=== PATIENT | male | born 1980 | race Caucasian/White ===

== ENCOUNTER 2025-03-19 17:11 | Emergency (ER) | payer MEDICAID ==
[~2025-03-19] VITALS: Ht 180.3 cm; Wt 77.0 kg
[2025-03-19 17:17] VITALS: TEMP 96.7; O2SAT 95
[2025-03-19] MEDS ORDERED: CEPH500C2 MT (17:28)
[2025-03-19] MEDS ORDERED: SULF1TAB48 MT (17:28)
[2025-03-19] MEDS ORDERED: MUPI1OIN4 TP (17:29)
[2025-03-19] MEDS: SULFAMETHOXAZOLE/TRIMETHOPRIM 800/160MG TABLET PO ONE (17:30)
[2025-03-19] MEDS: BACITRACIN ZINC OINT UDPKT TOP ONE (17:30)
[2025-03-19] MEDS: CEFTRIAXONE SODIUM 1G VIAL IM ONE (17:30)
[2025-03-19] MEDS: LIDOCAINE HCL 1% 20ML VIAL INFIL ONE (17:45)
[2025-03-19 18:15] VITALS: BP 127/92; PULSE 76; RESP 16; O2SAT 100
== END 2025-03-19 18:20 | disposition home or self-care (01) ==
LOC: ER 17:11
DX: L02.414 Cutaneous abscess of left upper limb (principal); Z86.19 Personal history of other infectious and parasitic diseases; Z79.899 Other long term (current) drug therapy
CPT/HCPCS: 99283; 96372; J0696; J2003